=== PATIENT | male | born 1965 | race Caucasian/White ===

== ENCOUNTER 2020-04-24 12:29 | Emergency (ER) | payer BC ==
--- NOTE | 2020-04-24 12:30 | ERPHSYRPT ---
- History of Present Illness Time Seen by Provider: 04/24/20 12:30 Source: patient, family Exam Limitations: no limitations Physician History: This is a morbidly obese hypertensive gentleman who is diabetic and who is supposed to be taking both lisinopril and metoprolol for blood pressure management. He is 54 years old. Patient's complaint on arrival is shortness of air. He is also found to have a systolic blood pressure of over 200. He denies visual changes and he denies headache. He denies pain of any kind. The patient has been out of his lisinopril for a week. He did get a refill for the lisinopril from his physician but it has not picked it up yet. At approximately 3:00 this morning patient noticed that he could not get a deep breath. He uses a CPAP machine and with the CPAP machine his symptoms resolved. Later this morning, without the CPAP machine he had another episode where he was short of breath. He did not have any chest pain. He has no cough no fever. He denies myalgias and arthralgias. He has not been exposed to anyone with COVID-19 symptoms or positive test results. He has had no nausea vomiting or diarrhea. He has no abdominal pain. Patient does not see a associate store leader or aircraft powertrain repairer. His last primary care physician was Dr. Peña. Timing/Duration: today Activities at Onset: none Severity of Dyspnea-Max: mild Severity of Dyspnea-Current: mild Possible Cause: no prior episodes Modifying Factors: Improves With: other (CPAP improved his symptoms) Associated Symptoms: denies symptoms, No cough, No chest pain/discomfort, No fever Allergies/Adverse Reactions: No Known Drug Allergies Allergy (Unverified 04/24/20 12:41) Home Medications: Amlodipine Besylate 10 mg PO DAILY 04/24/20 [History] Doxazosin Mesylate 4 mg PO DAILY 04/24/20 [History] Metformin HCl 500 mg [Glucophage 500 MG] 1,000 mg PO DAILY 04/24/20 [History] Metoprolol Tartrate 100 mg PO DAILY 04/24/20 [History] Simvastatin 20 mg PO DAILY 04/24/20 [History] Zolpidem Tartrate 10 mg [Ambien 10 MG] 10 mg PO DAILY 04/24/20 [History] glipiZIDE [Glipizide] 10 mg PO DAILY 04/24/20 [History] lisinopriL [Lisinopril] 40 mg PO DAILY 04/24/20 [History] Travel Risk - International Travel Have you traveled outside of the country in past 3 weeks: No - Coronavirus Screening Are you exhibiting any of the following symptoms?: Yes Symptoms: Shortness of Breath Close contact with a COVID-19 positive Pt in past 14-21 Days: No - Review of Systems Constitutional: No Symptoms Eyes: No Symptoms Ears, Nose, & Throat: No Symptoms Respiratory: Dyspnea, No Cough, No Stridor, No Wheezing Cardiac: No Chest Pain Abdominal/Gastrointestinal: No Symptoms Genitourinary Symptoms: No Symptoms Musculoskeletal: No Symptoms Skin: No Symptoms Neurological: No Symptoms Psychological: No Symptoms Endocrine: No Symptoms Hematologic/Lymphatic: No Symptoms Immunological/Allergic: No Symptoms All Other Systems: Reviewed and Negative - Past Medical History Pertinent Past Medical History: Yes Neurological History: No Pertinent History ENT History: No Pertinent History Cardiac History: Hypertension Respiratory History: Sleep Apnea Endocrine Medical History: Diabetes Type II Musculoskeletal History: No Pertinent History GI Medical History: No Pertinent History History: No Pertinent History Psycho-Social History: No Pertinent History Male Reproductive Disorders: No Pertinent History - Past Surgical History Past Surgical History: No Neuro Surgical History: No Pertinent History Cardiac: No Pertinent History Respiratory: No Pertinent History Gastrointestinal: No Pertinent History Genitourinary: No Pertinent History Male Surgical History: No Pertinent History - Social History Smoking Status: Current every day smoker - Nursing Vital Signs Nursing Vital Signs: Initial Vital Signs Pulse Rate 72 04/24/20 12:30 Respiratory Rate 17 04/24/20 12:30 Blood Pressure 207/94 04/24/20 12:30 O2 Sat by Pulse Oximetry 95 04/24/20 12:30 Pain Scale Pain Intensity 0 - Physical Exam General Appearance: no apparent distress, alert, anxiety, obese Eye Exam: PERRL/EOMI, eyes nml inspection Ears, Nose, Throat Exam: hearing grossly normal Neck Exam: normal inspection, non-tender, supple, full range of motion Respiratory Exam: normal breath sounds, lungs clear, airway intact, No chest tenderness, No respiratory distress Cardiovascular/Chest Exam: normal heart sounds, regular rate/rhythm, normal peripheral pulses Abdominal/Gastrointestinal Exam: No tenderness Extremity Exam: non-tender, normal range of motion, normal inspection, normal capillary refill, no calf tenderness, no pedal edema, pelvis stable Neurologic Exam: alert, oriented x 3, cooperative, enrollment advisor II-XII nml as tested, normal mood/affect, nml cerebellar function, nml station & gait, sensation nml Skin Exam: normal color, warm, dry Lymphatic Exam: No adenopathy SpO2 Interpretation: borderline oxygenation O2 Delivery: Room Air - Course Nursing assessment & vital signs reviewed: Yes EKG Interpreted by Me: RATE ([id number]), Sinus Rhythm, Left [place] Deviation, NORMAL INTERVALS, NORMAL QRS, Other (No acute ischemic changes appreciated. There is no comparison EKG available) Ordered Tests: Active Orders 24 hr Category Date Time Status Social Insurance Administrator STAT Care 04/24/20 12:42 Active EKG-ER Only STAT Care 04/24/20 12:41 Active IV Insertion STAT Care 04/24/20 12:41 Active Pulse Oximetry (ED) STAT Care 04/24/20 12:41 Active CHEST 1 VIEW (PORTABLE) Stat Exams 04/24/20 12:56 Completed CBC W DIFF Stat Lab 04/24/20 12:58 Completed CMP Stat Lab 04/24/20 12:58 Completed D-DIMER QUANTITATIVE Stat Lab 04/24/20 12:58 Completed NT PRO BNP Stat Lab 04/24/20 12:58 Completed PROTIME WITH INR Stat Lab 04/24/20 12:58 Completed TROPONIN Q3H Lab 04/24/20 12:58 Completed TROPONIN Q3H Lab 04/24/20 15:45 Ordered TROPONIN Q3H Lab 04/24/20 18:45 Ordered TROPONIN Q3H Lab 04/24/20 21:45 Ordered TROPONIN Q3H Lab 04/25/20 00:45 Ordered Medication Summary Discontinued Medications Generic Name Dose Route Start Last Admin Trade Name Freq PRN Reason Stop Dose Admin Enalaprilat 1.25 mg 04/24/20 13:04 04/24/20 13:18 Vasotec I.V. 2.5 Mg IV 04/24/20 13:05 1.25 mg STAT ONE Administration Enalaprilat Confirm 04/24/20 13:16 Vasotec I.V. 2.5 Mg Administered 04/24/20 13:17 Dose 2.5 mg IV .STK-MED ONE Lab/Rad Data: Laboratory Result Diagrams 04/24/20 12:58 04/24/20 12:58 Laboratory Results 04/24/20 04/24/20 04/24/20 Range/Units 12:58 12:58 12:58 WBC (4.0-10.5) K/mm3 RBC (4.1-5.6) M/mm3 Hgb (12.5-18.0) gm/dl Hct (42-50) % MCV (78-100) fl MCH (26-32) pg MCHC (32-36) g/dl RDW (11.5-14.0) % Plt Count (150-450) K/mm3 MPV (7.5-11.0) fl Gran % (36.0-66.0) % Eos # (Auto) (0-0.5) Absolute Lymphs (auto) (1.0-4.6) Absolute Monos (auto) (0.0-1.3) Lymphocytes % (24.0-44.0) % Monocytes % (0.0-12.0) % Eosinophils % (0.00-5.0) % Basophils % (0.0-0.4) % Absolute Granulocytes (1.4-6.9) Basophils # (0-0.4) PT 11.1 (8.83-12.87) SECONDS INR 0.98 (0.8-3.0) D-Dimer 239 (215-500) ng/mL Sodium 137 (137-145) mmol/L Potassium 4.3 (3.5-5.1) mmol/L Chloride 103 (98-107) mmol/L Carbon Dioxide 21 L (22-30) mmol/L Anion Gap 16.6 H (5-15) MEQ/L BUN 15 (9-20) mg/dL Creatinine 0.74 (0.66-1.25) mg/dL Estimated GFR > 60.0 ML/MIN Glucose 378 H (74-106) mg/dL Calcium 8.8 (8.4-10.2) mg/dL Total Bilirubin 0.50 (0.2-1.3) mg/dL AST 23 (17-59) U/L ALT 25 (0-50) U/L Alkaline Phosphatase 64 (38-126) U/L Troponin I < 0.012 (0.000-0.034) ng/mL NT-Pro-B Natriuret Pep 132 (0-900) pg/mL Serum Total Protein 7.7 (6.3-8.2) g/dL Albumin 4.5 (3.5-5.0) g/dL 04/24/20 Range/Units 12:58 WBC 6.6 (4.0-10.5) K/mm3 RBC 4.72 (4.1-5.6) M/mm3 Hgb 14.8 (12.5-18.0) gm/dl Hct 43.3 (42-50) % MCV 91.7 (78-100) fl MCH 31.4 (26-32) pg MCHC 34.2 (32-36) g/dl RDW 13.3 (11.5-14.0) % Plt Count 170 (150-450) K/mm3 MPV 11.8 H (7.5-11.0) fl Gran % 70.8 H (36.0-66.0) % Eos # (Auto) 0.26 (0-0.5) Absolute Lymphs (auto) 1.19 (1.0-4.6) Absolute Monos (auto) 0.45 (0.0-1.3) Lymphocytes % 18.1 L (24.0-44.0) % Monocytes % 6.8 (0.0-12.0) % Eosinophils % 4.0 (0.00-5.0) % Basophils % 0.3 (0.0-0.4) % Absolute Granulocytes 4.65 (1.4-6.9) Basophils # 0.02 (0-0.4) PT (8.83-12.87) SECONDS INR (0.8-3.0) D-Dimer (215-500) ng/mL Sodium (137-145) mmol/L Potassium (3.5-5.1) mmol/L Chloride (98-107) mmol/L Carbon Dioxide (22-30) mmol/L Anion Gap (5-15) MEQ/L BUN (9-20) mg/dL Creatinine (0.66-1.25) mg/dL Estimated GFR ML/MIN Glucose (74-106) mg/dL Calcium (8.4-10.2) mg/dL Total Bilirubin (0.2-1.3) mg/dL AST (17-59) U/L ALT (0-50) U/L Alkaline Phosphatase (38-126) U/L Troponin I (0.000-0.034) ng/mL NT-Pro-B Natriuret Pep (0-900) pg/mL Serum Total Protein (6.3-8.2) g/dL Albumin (3.5-5.0) g/dL - Progress Progress: improved, re-examined Air Movement: good Progress Note: 04/24/20 13:32 Chest x-ray shows no acute pneumonic process and no CHF. 04/24/20 13:58 Medical decision making: This patient presents with shortness of air. We found that his blood pressure was elevated. His discharge blood pressure is improved to a reasonable level for discharge. He is asymptomatic. He has not taking his morning blood pressure of lisinopril. He is to go directly to the pharmacy and waste picker that medication and will take his first dose today. Patient's shortness of breath has resolved 04/24/20 13:59 Blood Culture(s) Obtained: No Antibiotics given: No Counseled pt/family regarding: lab results, diagnosis, need for follow-up, rad results - Departure Departure Disposition: Home Clinical Impression: Hypertensive urgency, Shortness of breath Condition: Stable Critical Care Time: Yes Critical Care Time(excluding separately billable procedures): Critical 30-74 mins Referrals: TRINH PEÑA [Primary Care Provider] - Additional Instructions: watch supervisor your lisinopril prescription and take your first dose as soon as you pick that up this morning. Follow-up with your primary care physician for further management
[2020-04-24 13:03] LABS: Absolute Neutrophil Ct (ANC) 4.65 (1.4-6.9); BASOPHIL % 0.3 % (0.0-0.4); Basophil (Absolute #) 0.02 (0-0.4); Eosinophil (Absolute #) 0.26 (0-0.5); Hematocrit 43.3 % (42-50); Hemoglobin 14.8 gm/dl (12.5-18.0); Lymphocyte (Absolute #) 1.19 (1.0-4.6); Lymphocytes % 18.1 % (24.0-44.0); Mean Cell Volume 91.7 fl (78-100); Mean Corpuscular Hemoglobin 31.4 pg (26-32); Mean Corpuscular Hgb Concent. 34.2 g/dl (32-36); Mean Platelet Volume 11.8 fl (7.5-11.0); Monocyte (Absolute #) 0.45 (0.0-1.3); Monocytes % 6.8 % (0.0-12.0); Neutrophil % 70.8 % (36.0-66.0); Platelet Count 170 K/mm3 (150-450); Red Blood Count 4.72 M/mm3 (4.1-5.6); Red Cell Distribution Width 13.3 % (11.5-14.0); White Blood Count 6.6 K/mm3 (4.0-10.5)
--- NOTE | 2020-04-24 13:11 | XRAY ---
Indication: Short of breath. Comparison: August 21, 2011. Portable chest demonstrates new borderline cardiomegaly. No focal infiltrate, consolidation, or large effusion. Bony thorax intact. Impression: Borderline cardiomegaly. Negative for acute pneumonic process or CHF.
[2020-04-24] MEDS ORDERED: VASOTEC I.V. 2.5 MG IV ONE (13:16)
[2020-04-24 13:17] LABS: INR 0.98 (0.8-3.0); PROTIME 11.1 SECONDS (8.83-12.87)
[2020-04-24] MEDS: VASOTEC I.V. 2.5 MG IV ONE (13:18)
[2020-04-24 13:29] LABS: ALBUMIN 4.5 g/dL (3.5-5.0); ALKALINE PHOSPHATASE 64 U/L (38-126); ANION GAP 16.6 MEQ/L (5-15); BLOOD UREA NITROGEN 15 mg/dL (9-20); CHLORIDE 103 mmol/L (98-107); Calcium 8.8 mg/dL (8.4-10.2); Carbon Dioxide 21 mmol/L (22-30); Creatinine 1 0.74 mg/dL (0.66-1.25); Glucose 378 mg/dL (74-106); NT PRO BNP 132 pg/mL (0-900); Potassium 4.3 mmol/L (3.5-5.1); SGOT/AST 23 U/L (17-59); SGPT/ALT 25 U/L (0-50); SODIUM 137 mmol/L (137-145); Total Protein 7.7 g/dL (6.3-8.2)
[2020-04-24 13:41] VITALS: PULSE 68
[2020-04-24 14:02] VITALS: BP 177/86; O2SAT 97
== END 2020-04-24 14:10 | disposition home or self-care (01) ==
LOC: ED 12:29
DX: I16.0 Hypertensive urgency (principal); R06.02 Shortness of breath; E11.9 Type 2 diabetes mellitus without complications; Z79.899 Other long term (current) drug therapy; Z72.0 Tobacco use
CPT/HCPCS: 36000; 36415; 71045; 80053; 83880; 84484; 85025; 85379; 85610; 93005; 93041; 94760; 96374; 99284; 99291

== ENCOUNTER 2020-04-26 18:27 | Emergency (ER) | payer BC ==
[2020-04-26] MEDS ORDERED: DUONEB 0.5-3 MG/3 ml Neb IH ONE ×2 (19:30→20:03)
[2020-04-26] MEDS ORDERED: solu-MEDROL 125 MG IV ONE (19:31)
[2020-04-26] MEDS ORDERED: solu-MEDROL 125 MG ONE (19:41)
--- NOTE | 2020-04-26 20:40 | ERPHSYRPT ---
- History of Present Illness Time Seen by Provider: 04/26/20 19:00 Patient Subjective Stated Complaint: SOB Triage Nursing Assessment: Patient ambulated back to ED and transferred self to bed. Patient A+O X3. Patient's skin pink, warm and dry. Patient complains of a feeling a tightness in his throat and feels like he can't take a deep breath then he starts to panic. Patient was just discharged from formerly [facility] for the same thing. Patient's lungs clear a/p kumar. Physician History: 54 years old male with history of hypertension, hyperlipidemia, diabetes mellitus, heavy tobacco use presented in the ER with chief complaint of difficulty breathing for the last 3 days. Patient has been seen in the ER twice and last visit at [facility] this afternoon where he has extensive work-up done which was negative and was discharged. Patient reports he has a difficulty taking deep breath and it feels like he is getting short of breath which makes him anxious and his symptoms start worsen. He feels this through him as an panic attack although he does not have any history of anxiety or panic attacks in the past. Today he is feeling swelling in the throat and feels as if food is getting stuck in there. He was coming back from [facility] and on the way home he had another attack. He denies any chest pain or pressure. No palpitations. Denies any cough fever or chills. Denies any known sick contact. Timing/Duration: day(s) (3), gradual onset, worse Activities at Onset: rest Severity of Dyspnea-Max: moderate Severity of Dyspnea-Current: moderate Possible Cause: no prior episodes Modifying Factors: Improves With: deep breath Associated Symptoms: anxiety, cough, tightness, No chest pain/discomfort, No fever Allergies/Adverse Reactions: No Known Drug Allergies Allergy (Verified 04/26/20 18:33) Home Medications: Amlodipine Besylate 10 mg PO DAILY 04/24/20 [History] Doxazosin Mesylate 4 mg PO DAILY 04/24/20 [History] Metformin HCl 500 mg [Glucophage 500 MG] 1,000 mg PO DAILY 04/24/20 [History] Metoprolol Tartrate 100 mg PO DAILY 04/24/20 [History] Simvastatin 20 mg PO DAILY 04/24/20 [History] Zolpidem Tartrate 10 mg [Ambien 10 MG] 10 mg PO DAILY 04/24/20 [History] glipiZIDE [Glipizide] 10 mg PO DAILY 04/24/20 [History] lisinopriL [Lisinopril] 40 mg PO DAILY 04/24/20 [History] Hx Tetanus, Diphtheria Vaccination/Date Given: Yes Hx Influenza Vaccination/Date Given: Yes Hx Pneumococcal Vaccination/Date Given: Yes Immunizations Up to Date: Yes Travel Risk - International Travel Have you traveled outside of the country in past 3 weeks: No - Coronavirus Screening Are you exhibiting any of the following symptoms?: No Close contact with a COVID-19 positive Pt in past 14-21 Days: No - Review of Systems Constitutional: No Symptoms Eyes: No Symptoms Ears, Nose, & Throat: Throat Swelling, Painful Swallowing Respiratory: Dyspnea Cardiac: No Symptoms Abdominal/Gastrointestinal: No Symptoms Genitourinary Symptoms: No Symptoms Musculoskeletal: No Symptoms Skin: No Symptoms Neurological: No Symptoms Psychological: Anxiety Endocrine: No Symptoms Hematologic/Lymphatic: No Symptoms Immunological/Allergic: No Symptoms - Past Medical History Pertinent Past Medical History: Yes Neurological History: No Pertinent History ENT History: No Pertinent History Cardiac History: Hypertension Respiratory History: Sleep Apnea Endocrine Medical History: Diabetes Type II Musculoskeletal History: No Pertinent History GI Medical History: No Pertinent History History: No Pertinent History Psycho-Social History: No Pertinent History Male Reproductive Disorders: No Pertinent History - Past Surgical History Past Surgical History: No Neuro Surgical History: No Pertinent History Cardiac: No Pertinent History Respiratory: No Pertinent History Gastrointestinal: No Pertinent History Genitourinary: No Pertinent History Male Surgical History: No Pertinent History - Social History Smoking Status: Current every day smoker How long have you smoked: years Exposure to second hand smoke: No Drug Use: none Patient Lives Alone: No - Nursing Vital Signs Nursing Vital Signs: Initial Vital Signs Temperature 99.6 F 04/26/20 18:33 Pulse Rate 75 04/26/20 18:33 Respiratory Rate 16 04/26/20 18:33 Blood Pressure 182/98 04/26/20 18:33 O2 Sat by Pulse Oximetry 98 04/26/20 18:33 Pain Scale Pain Intensity 0 - Physical Exam General Appearance: no apparent distress, alert, anxiety Eye Exam: PERRL/EOMI, eyes nml inspection Ears, Nose, Throat Exam: hearing grossly normal, pharyngeal erythema Neck Exam: normal inspection, non-tender, supple, full range of motion, lymphadenopathy (R), lymphadenopathy (L) Respiratory Exam: normal breath sounds, lungs clear, No chest tenderness Cardiovascular/Chest Exam: normal heart sounds, regular rate/rhythm Abdominal/Gastrointestinal Exam: soft, normal bowel sounds Extremity Exam: non-tender Neurologic Exam: alert, oriented x 3, cooperative, splitter tender II-XII nml as tested, normal mood/affect Skin Exam: normal color SpO2 Interpretation: normal SpO2: 96 O2 Delivery: Room Air - Course Nursing assessment & vital signs reviewed: Yes EKG Interpreted by Me: RATE ([id number]), Sinus Rhythm, NORMAL AXIS, NORMAL INTERVALS, NORMAL QRS Ordered Tests: Active Orders 24 hr Category Date Time Status EKG-ER Only STAT Care 04/26/20 20:40 Active CHEST WITH CONTRAST [CT] Stat Exams 04/26/20 19:30 Taken NECK WITH CONTRAST [CT] Stat Exams 04/26/20 19:30 Taken TROPONIN Q3H Lab 04/26/20 20:30 Completed TROPONIN Q3H Lab 04/26/20 23:45 Ordered Respiratory Therapy Assessment DAILY RT 04/26/20 20:05 Completed Medication Summary Discontinued Medications Generic Name Dose Route Start Last Admin Trade Name Freq PRN Reason Stop Dose Admin Albuterol/Ipratropium 3 ml 04/26/20 19:30 04/26/20 20:07 Duoneb 0.5-3 Mg/3 Ml Neb IH 04/26/20 19:31 3 ml STAT ONE Administration Albuterol/Ipratropium Confirm 04/26/20 20:03 Duoneb 0.5-3 Mg/3 Ml Neb Administered 04/26/20 20:04 Dose 3 ml IH .STK-MED ONE Sodium Chloride Confirm 04/26/20 22:17 Sodium Chloride 0.9% 1000 Ml Administered 04/26/20 22:18 Dose 1,000 mls @ ud .ROUTE .STK-MED ONE Ketorolac Tromethamine Confirm 04/26/20 22:16 Toradol 30 Mg Injection Administered 04/26/20 22:17 Dose 30 mg .ROUTE .STK-MED ONE Methylprednisolone Sodium Succinate 125 mg 04/26/20 19:31 04/26/20 19:43 Solu-Medrol 125 Mg IV 04/26/20 19:32 125 mg STAT ONE Administration Methylprednisolone Sodium Succinate Confirm 04/26/20 19:41 Solu-Medrol 125 Mg Administered 04/26/20 19:42 Dose 125 mg .ROUTE .STK-MED ONE Morphine Sulfate Confirm 04/26/20 22:17 Morphine Sulfate 4 Mg Inj Administered 04/26/20 22:18 Dose 4 mg .ROUTE .STK-MED ONE Ondansetron HCl Confirm 04/26/20 22:16 Zofran 4 Mg/2 Ml Vial Administered 04/26/20 22:17 Dose 4 mg .ROUTE .STK-MED ONE Tamsulosin HCl Confirm 04/26/20 22:17 Flomax 0.4 Mg Administered 04/26/20 22:18 Dose 0.4 mg .ROUTE .STK-MED ONE Lab/Rad Data: Laboratory Results 04/26/20 Range/Units 20:30 Troponin I < 0.012 (0.000-0.034) ng/mL - Progress Progress: improved, re-examined Air Movement: good Progress Note: 04/26/20 22:45 54 years old is evaluated for difficulty breathing choking sensation for the last 3 days with multiple ER visits. I have reviewed his labs from this afternoon at [place] and they are grossly unremarkable. EKG normal sinus rhythm him here and negative troponin again. I have obtained CT neck with contrast which showed prominent bilateral tonsils with a irregular soft tissue mass at base of tongue/valley cola and bilateral submandibular/cervical lymphadenopathy with suspicious for mets. He is given breathing treatment and Solu-Medrol, on reevaluation feeling better and maintaining his oxygen saturation at room air. Not in any distress. But according to patient's history he gets episodes where he cannot breathe and it started all of a sudden and it happened this afternoon when he left [place] was fine and later on the way home he had another episode. I believe patient's symptoms are due to obstructive/mass lesion in the upper airway. It would be better to transfer him to facility with ENT services. [facility] and patient finding presentation is reviewed and is accepted for transfer. Plan discussed with patient who understand and agrees with it. Blood Culture(s) Obtained: No Antibiotics given: No Discussed with Dr.: Other ( [facility] hispitalist) Counseled pt/family regarding: lab results, diagnosis, rad results - Departure Departure Disposition: Transfer Clinical Impression: Tongue mass Condition: Stable Critical Care Time: No Referrals: TRINH PEÑA [Primary Care Provider] -
[2020-04-26] MEDS ORDERED: Zofran 4 MG/2 ML VIAL ONE (22:16)
[2020-04-26] MEDS ORDERED: TORAdol 30 mg Injection ONE (22:16)
[2020-04-26] MEDS ORDERED: MORPHINE SULFATE 4 MG INJ ONE (22:17)
[2020-04-26] MEDS ORDERED: Sodium Chloride 0.9% 1000 ML 1,000 ML ONE (22:17)
[2020-04-26] MEDS ORDERED: Flomax 0.4 MG ONE (22:17)
[2020-04-26 23:20] VITALS: O2SAT 97
[2020-04-27 00:26] VITALS: BP 182/89; PULSE 64
--- NOTE | 2020-04-27 09:12 | XRAY ---
Indication: "Something stuck in throat." Multiple contiguous axial images obtained through the neck using 60 cc Isovue 370 contrast. Comparison: None Enlarged bilateral palatine tonsils narrows the oropharynx. Base of the tongue/vallecula demonstrates irregular soft tissue mass measuring at least 1.6 x 2.5 x 2.5 cm that warrants direct laryngoscopy. Normal epiglottis and vocal cords. Remaining infraglottic airway widely patent. Multiple scattered small bilateral cervical lymph nodes, largest just posterior to the left submandibular gland measuring 1.4 x 1.8 cm either reactive versus metastatic. Parotid and submandibular glands are bilaterally symmetric. Major arteries and veins are normal in course and caliber. Moderate mucosal thickening of the visualized right maxillary sinus. Base of the brain unremarkable. Patient is edentulous with both mandible condyles are slightly subluxed anteriorly. Cervical spine intact with mild C5-C7 degenerative changes. Lung apices are clear. Impression: 1. Irregular soft tissue mass base of the tongue/vallecula as detailed. Recommend direct laryngoscopy. 2. Multiple small bilateral cervical lymph nodes either reactive versus metastatic. 3. Incidental right maxillary sinus disease, enlarged palatine tonsils, and C5-C7 and degenerative changes.
--- NOTE | 2020-04-27 09:18 | XRAY ---
Indication: Difficulty with deep breathing. Pneumonia. Pulmonary embolus. Multiple contiguous axial images obtained through the chest using 80 cc Isovue 370 contrast and PE protocol. Comparison: None There is adequate opacification of the pulmonary arteries. No pulmonary embolus. Heart is not enlarged. Aorta is normal in course and caliber. Small right hilar calcified nodes. No pathologic mediastinal/hilar lymphadenopathy. Lungs demonstrates minimal pulmonary emphysema and minimal scattered fibrosis/scarring. No suspicious pulmonary mass, infiltrate, consolidation, or effusion. Bony thorax demonstrates flowing osteophytes throughout the spine favoring diffuse idiopathic skeletal hyperostosis (also known as DISH). Limited upper abdomen demonstrates mild fatty liver and 19.4 cm splenomegaly. Impression: 1. Negative pulmonary embolus. No acute cardiopulmonary abnormalities. 2. Incidental pulmonary emphysema, fatty liver, splenomegaly, and DISH.
== END 2020-04-27 00:13 | disposition short-term general hospital (02) ==
LOC: ED 18:27
DX: C01 Malignant neoplasm of base of tongue (principal)
CPT/HCPCS: 36415; 70491; 71260; 84484; 93005; 94640; 96374; 99284; 99291; 99292; J1885; J2270; J2405; J2930; A9270-GY

== ENCOUNTER 2020-05-06 11:17 | Emergency (ER) | payer BC ==
[2020-05-06] MEDS ORDERED: Ativan 1 MG PO ONE (11:46)
[2020-05-06] MEDS ORDERED: Ativan 1 MG ONE (11:48)
--- NOTE | 2020-05-06 11:55 | ERPHSYRPT ---
- History of Present Illness Time Seen by Provider: 05/06/20 11:30 Source: patient Exam Limitations: no limitations Patient Subjective Stated Complaint: Pt states "I have never been to the hospital before last friday. They found a mass on my throat and I have had it biopsied. I have been short of breath ever since. I feel like I am having a panic attack." Triage Nursing Assessment: Pt presented alert and oriented X 3, skin pwd Pt speaking rapidly and unable to sit still. No apparent respiratory distress. Physician History: 54 years old male with history of hypertension, hyperlipidemia, diabetes mellitus, tobacco abuse, recent tongue mass with negative biopsy presented in the ER with chief complaint of worsening anxiety symptoms. Patient reports of for the last 2 weeks he is having off-and-on episodes where he feels he cannot breathe with choking sensation last for a few minutes to half an hour and improves. Denies any chest pain but has some palpitations at times. Symptoms are similar to previous episodes. Reports that once he has some soreness in the throat he starts to take deep breath and cannot catch it really well and starts panicking with shortness of breath. It gets better on its own after few minutes to half an hour. I have seen this patient 2 weeks ago and found a mass in the base of tongue and had obtained CT chest which ruled out PE. Patient tried to make an appointment with primary care but could not get. Wants something to help with his anxiety. Also report he is not been smoking for 1 week and that is also adding to his anxiety. Timing/Duration: week(s) (2), intermittent, worse Severity of Symptoms-Max: moderate Severity of Symptoms-Current: moderate Context related to: other Associated Symptoms: anxiety Previous symptoms: no prior history Allergies/Adverse Reactions: No Known Drug Allergies Allergy (Verified 04/26/20 18:33) Home Medications: Amlodipine Besylate 10 mg PO DAILY 04/24/20 [History] Doxazosin Mesylate 4 mg PO DAILY 04/24/20 [History] Metformin HCl 500 mg [Glucophage 500 MG] 1,000 mg PO DAILY 04/24/20 [History] Metoprolol Tartrate 100 mg PO DAILY 04/24/20 [History] Simvastatin 20 mg PO DAILY 04/24/20 [History] Zolpidem Tartrate 10 mg [Ambien 10 MG] 10 mg PO DAILY 04/24/20 [History] glipiZIDE [Glipizide] 10 mg PO DAILY 04/24/20 [History] lisinopriL [Lisinopril] 40 mg PO DAILY 04/24/20 [History] Hx Tetanus, Diphtheria Vaccination/Date Given: Yes Hx Influenza Vaccination/Date Given: No Hx Pneumococcal Vaccination/Date Given: No Immunizations Up to Date: Yes Travel Risk - International Travel Have you traveled outside of the country in past 3 weeks: No - Coronavirus Screening Are you exhibiting any of the following symptoms?: No Close contact with a COVID-19 positive Pt in past 14-21 Days: No - Past Medical History Pertinent Past Medical History: Yes Neurological History: No Pertinent History ENT History: No Pertinent History Cardiac History: Hypertension Respiratory History: Sleep Apnea Endocrine Medical History: Diabetes Type II Musculoskeletal History: No Pertinent History GI Medical History: No Pertinent History History: No Pertinent History Psycho-Social History: No Pertinent History Male Reproductive Disorders: No Pertinent History - Past Surgical History Past Surgical History: No Neuro Surgical History: No Pertinent History Cardiac: No Pertinent History Respiratory: No Pertinent History Gastrointestinal: No Pertinent History Genitourinary: No Pertinent History Male Surgical History: No Pertinent History Other Surgical History: biopsy of neck - Social History Smoking Status: Current every day smoker How long have you smoked: years Exposure to second hand smoke: Yes Drug Use: none Patient Lives Alone: No - Review of Systems Constitutional: No Symptoms Eyes: No Symptoms Ears, Nose, & Throat: No Symptoms Respiratory: Dyspnea Cardiac: No Symptoms Abdominal/Gastrointestinal: No Symptoms Genitourinary Symptoms: No Symptoms Musculoskeletal: No Symptoms Neurological: No Symptoms Psychological: Anxiety Endocrine: No Symptoms Hematologic/Lymphatic: No Symptoms Immunological/Allergic: No Symptoms - Nursing Vital Signs Nursing Vital Signs: Initial Vital Signs Temperature 98.5 F 05/06/20 11:18 Pulse Rate 62 05/06/20 11:18 Respiratory Rate 24 05/06/20 11:18 Blood Pressure 193/104 05/06/20 11:18 O2 Sat by Pulse Oximetry 99 05/06/20 11:18 Pain Scale Pain Intensity 0 - Physical Exam General Appearance: no apparent distress, alert, anxiety Eyes, Ears, Nose, Throat Exam: normal ENT inspection, TMs normal, pharyngeal erythema Neck Exam: normal inspection, non-tender, supple, full range of motion Respiratory Exam: normal breath sounds, lungs clear Cardiovascular Exam: regular rate/rhythm, normal heart sounds Gastrointestinal/Abdominal Exam: soft, normal bowel sounds Extremities Exam: normal inspection, normal range of motion Neurological Exam: alert, calm, 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, oriented x 3, anxious Appearance: appropriate appearance, appropriate insight Behavior/Eye Contact/Speech: alert & cooperative, cooperative, good eye contact, normal speech Thoughts/Hallucinations: normal thought pattern, no apparent hallucination Skin Exam: normal color SpO2 Interpretation: normal SpO2: 99 O2 Delivery: Room Air - Course Nursing assessment & vital signs reviewed: Yes Ordered Tests: Medication Summary Discontinued Medications Generic Name Dose Route Start Last Admin Trade Name Freq PRN Reason Stop Dose Admin Lorazepam 1 mg 05/06/20 11:46 05/06/20 11:50 Ativan 1 Mg PO 05/06/20 11:47 1 mg STAT ONE Administration Lorazepam Confirm 05/06/20 11:48 Ativan 1 Mg Administered 05/06/20 11:49 Dose 1 mg .ROUTE .AirXP-BaubleBar ONE - Progress Progress: improved Progress Note: 05/06/20 54 years old is evaluated for anxiety symptoms. I saw this patient few days ago and transferred him to [facility] with similar symptoms. I believe patient has worsening anxiety and part of the fact is that he was a heavy smoker 2 to 3 packs/day and stopped cold turkey few days ago which is also adding up to his symptoms. Denies any chest pain and has stable vitals. Patient wants something for anxiety and I have given him hydroxyzine and BuSpar to go home and given Ativan in here, on reevaluation feeling better. Do not think he needs any work-up and is stable for discharge. Counseled pt/family regarding: diagnosis, need for follow-up, smoking cessation - Departure Departure Disposition: Home Clinical Impression: Anxiety attack Condition: Stable Critical Care Time: No Referrals: TRINH PEÑA [Primary Care Provider] - Follow Up with PCP/3 days Instructions: Anxiety, Adult (DC) Additional Instructions: Follow-up with primary care physician for reevaluation. Return to ER for worsening. Take Vistaril as needed. Not smoke. Prescriptions: Buspirone HCl [Buspar] 5 mg PO TID 20 Days #60 tablet hydrOXYzine pamoate [Vistaril] 50 mg PO TID PRN 15 Days #30 capsule PRN Reason: Anxiety
[2020-05-06 12:20] VITALS: BP 165/97; PULSE 65
[2020-05-06 19:40] VITALS: O2SAT 99
== END 2020-05-06 12:21 | disposition home or self-care (01) ==
LOC: ED 11:17
DX: F41.9 Anxiety disorder, unspecified (principal); I10 Essential (primary) hypertension; E11.9 Type 2 diabetes mellitus without complications; R00.2 Palpitations; Z79.899 Other long term (current) drug therapy
CPT/HCPCS: 99283; A9270-GY